=== PATIENT | male | born 1985 | race American Indian/Alaskan Native ===

== ENCOUNTER 2018-04-25 13:39 | Emergency (ER) | payer OTHER ==
[~2018-04-25] VITALS: Ht 160 cm; Wt 93.0 kg
--- NOTE | ~2018-04-25 | EKG ---
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 Manuel GUTIERREZ : 1985 Requested By: Dean Padilla Order Number: [id number] MD: Singh Vinson Measurements Intervals [place] Rate: 96 P: 37 [place]: 125 QRS: 2 QRSD: 83 T: 30 QT: 331 QTc: 419 Interpretive Statements Sinus rhythm Borderline T wave abnormalities No previous ECG available for comparison Electronically Signed On 04-26-2018 14:07:20 CDT by Singh Vinson [email or web address] <ELECTRONICALLY SIGNED> By: Singh Vinson MD, [facility] 04/26/18 1407 1457 1457 Singh Vinson MD, FAC /EPI
[~2018-04-25 13:39] MED LIST: HYCET 7.5 MG-3473 ML PO; NOHOMEMEDICATIONS; ZPAK PO
[2018-04-25] MEDS ORDERED: MEDROLDOSEPACK PO (16:01)
[2018-04-25] MEDS ORDERED: ACCUNEB SO1.25 MG/1 INH (16:01)
[2018-04-25] MEDS ORDERED: TESSALON PERLE100 MG PO (16:01)
[2018-04-25 16:43] VITALS: BP 108/77
== END 2018-04-25 16:46 | disposition home or self-care (01) ==
LOC: ER 13:39
DX: J20.9 Acute bronchitis, unspecified (principal)

== ENCOUNTER 2021-08-07 13:19 | Emergency (ER) | payer OTHER ==
[~2021-08-07] VITALS: Ht 160 cm; Wt 95.3 kg
[~2021-08-07 13:19] MED LIST changes: +ACCUNEB SO1.25 MG/1 INH; +MEDROLDOSEPACK PO; +TESSALON PERLE100 MG PO
[2021-08-07 13:26] VITALS: BP 128/79
[2021-08-07] MEDS ORDERED: TESSALON PERLE100 MG PO (14:36)
== END 2021-08-07 14:37 | disposition home or self-care (01) ==
LOC: ER 13:19
PROVIDERS: Emergency Medicine
DX: J09.X2 Influenza due to identified novel influenza A virus with other respiratory manifestations (principal); Z20.822 Contact with and (suspected) exposure to COVID-19